=== PATIENT | female | born 1990 | race Caucasian/White ===

== ENCOUNTER 2019-10-30 15:07 | Emergency (ER) | payer SELFPAY ==
[2019-10-30] VITALS (20 sets, daily range): BP systolic 109–132; BP diastolic 55–84; PULSE 47–108; RESP 12–28; TEMP 36.6–37; O2SAT 97–100
[2019-10-30] MEDS: diphenhydrAMINE 50 MG/ML VIAL 25 MG IVP (15:15)
[2019-10-30] MEDS: methylPREDNISolone SUCC 125 MG VIAL (15:16)
[2019-10-30] MEDS: FAMOTIDINE 20 MG/50 ML BAG 200 MG (15:16)
--- NOTE | 2019-10-30 15:19 | ED.GENADUL_ITS ---
Discharge Plan Disposition Patient Disposition: HOME Condition: Good Discharge Details Chief Complaint: Allergic Clinical Impression: Allergic reaction to bee sting Primary Care Provider: Pushpa Mcdaniel ED Provider: Lily Paz Home Meds and New Rx's Prescriptions: New epinephrine [EpiPen] 0.3 mg/0.3 mL auto-injector 0.3 mg IM ONCE PRN (Reason: allergic reaction) Qty: 2 RF: 0 prednisone 20 mg tablet 40 mg PO DAILY Qty: 6 RF: 0 Discharge Instructions Instructions: General Allergic Reaction (ED) Additional Instructions: You may continue to use Benadryl as needed to help with any itching that may recur. However, if you develop difficulty breathing, shortness of breath, swelling in 1 mouth or throat or the new/worsening symptom please seek care urgently once again. Please take the prednisone as prescribed to help prevent recurrence of your reaction, your next dose will be due tomorrow. I have also prescribed you an EpiPen. Please read the directions closely. This is to be used if you have a re-exposure such as being stung again, and develop difficulty breathing, shortness of breath or other new/worsening symptom. If you do need to use the EpiPen, please return immediately to the emergency department. Please contact your primary care provider and schedule follow-up appointment in the next 1 to 2 weeks. Referrals: Pushpa Mcdaniel [Primary Care Provider] - Discharge Data Discharge Date/Time-TO BE ENTERED AT DEPARTURE: 10/30/19 17:22 Medical Decision Making <CARMINE Gutierrez - Last Filed: 10/31/19 16:02> 29-year-old female presents with likely allergic reaction to a bee sting on the right forearm. No stinger present. She did take a single dose of 25 milligrams p.o. Benadryl. Will obtain IV access, give 125 Solu-Medrol, 20 Pepcid, 25 Benadryl, 1 L normal saline and monitor carefully. At this time there is no clear indication for epinephrine. Patient was reevaluated around 45 minutes after her initial presentation. The rash is becoming less impressive, far less erythematous and more patchy in nature. Far less dense on her trunk, face, arms. Patient subjectively reports feeling significant improvement. No longer itchy. Reports that the tightness in her upper lip is resolving. I am able to appreciate a small amount of upper lip swelling however it does appear to be improving. <CARMINE West - Last Filed: 10/30/19 17:17> Care transition myself from Joe Kaufman PA-C, with reevaluation pending. In brief, patient is a pleasant 29-year-old female with no previous known allergies, who presented for allergic reaction after being stung by a bee. Patient was given Benadryl, famotidine and methylprednisolone. When she first arrived, she was noted to have a rash,. S, and swelling to the upper lip. She continues to feel much improved. I have checked on the patient multiple times. Continues to have no respiratory or GI complaints. States that the rash is improved. The swelling to the upper lip continues to go down. Patient was in the department for 2 hours. She continues to be stable without evidence of anaphylaxis, I do feel that she is safe for discharge. However, I do feel that continuing the patient on steroid burst would be appropriate. I will also prescribe an EpiPen in the event that she is stung once again and has worsening reaction. We did discuss usage, I did encourage that she read the instructions closely. She was given strict return precautions. Advise follow-up with her primary care. All the questions and concerns were addressed and she is agreement this plan. HPI <CARMINE Gutierrez - Last Filed: 10/31/19 16:02> General Mode of arrival: ambulatory . Date/Time Provider Initiated Documentation: 10/30/19 15:19 . Limitations to Documentation: no limitations . Information obtained by: patient . HPI Narrative: This is a 29-year-old female who denies any significant past medical history reports that she was stung on the right forearm by what she believes to be a bee. This occurred around 2-215 and she took a single dose of 25 mg Benadryl around 230. She reports a body wide itchy rash she feels as though her upper lip is slightly swollen. She denies difficulty speaking, swallowing, breathing. Denies wheezing. She has never had an allergic reaction like this. She denies headache, chest pain, numbness, tingling, weakness, pain anywhere. Related Data Home Medications Medication Instructions Recorded Confirmed epinephrine [EpiPen] 0.3 mg IM ONCE PRN #2 each 10/30/19 prednisone 40 mg PO DAILY #6 tab 10/30/19 Previous Rx's Medication Instructions Recorded epinephrine [EpiPen] 0.3 mg IM ONCE PRN #2 each 10/30/19 prednisone 40 mg PO DAILY #6 tab 10/30/19 Allergies Allergy/AdvReac Type Severity Reaction Status Date / Time No Known Allergies Allergy Unverified 10/30/19 15:22 General Stated Complaint: Allergic DUY: 2 Review of Systems <CRAMINE Gutierrez - Last Filed: 10/31/19 16:02> Constitutional Constitutional: Denies fever(s) Eyes Eyes: Denies change in vision ENT Ears, Nose, Mouth, and Throat: Denies throat swelling and Denies tongue swelling Cardiovascular Cardiovascular: Denies chest pain and Denies dyspnea Respiratory Respiratory: Denies cough and Denies dyspnea Gastrointestinal Gastrointestinal: Denies abdominal pain, Denies nausea and Denies vomiting Musculoskeletal Musculoskeletal: Denies arthralgias, Denies numbness and Denies tingling Integumentary/Breasts Skin/Breast: Reports rash Neurologic Neurologic: Denies numbness and Denies tingling Allergic/Immunologic Allergic/Immunologic: Denies throat swelling and Denies tongue swelling PFSH <CARMINE Gutierrez - Last Filed: 10/31/19 16:02> Social History Smoking/Tobacco Use Status: Current-Occasional Alcohol Intake: current Alcohol Intake frequency: holidays/special occasions only Substance use type: marijuana Do you feel safe at home: Yes Do you feel safe in your relationship?: Yes Exam <CARMINE Gutierrez - Last Filed: 10/31/19 16:02> Const General: cooperative, healthy appearing, comfortable, no acute distress and anxious Orientation: alert, awake and oriented x3 HENMT Head: normal to inspection, normocephalic and atraumatic Ears: hearing grossly normal bilaterally General nose exam: external nose normal Face and sinus: other (Upper lip with minimal swelling) Mouth: moist mucous membranes Throat: posterior oropharynx normal Eyes Conjunctivae: conjunctivae normal Sclera: sclerae normal Neck Neck: normal visual inspection, full ROM, trachea midline and supple Resp Effort & Inspection: normal respiratory effort and able to speak in complete sentences Auscultation: clear to auscultation bilaterally Cardio Rate: regular rate Rhythm: regular rhythm GI Palpation: soft and nontender Back/Spine/Pelvis Back: No back tenderness Skin General skin exam: no rashes or lesions noted Other: There is a body wide erythematous rash that is blanchable, minimally papular. The highest concentration is that of the trunk, face, upper extremities, less on the lower extremities. Minimal warmth. No discomfort. Neuro General: patient alert, patient awake, patient oriented x3, moves all extremities and no focal motor deficits Cranial Nerves: CN's II-XI intact bilaterally Cognition: normal cognition Speech: speech normal Gait: normal gait Motor: muscle tone normal throughout and strength 5/5 throughout Sensory Exam: no sensory deficits noted Extrem Right upper extremity: full ROM and normal capillary refill Left upper extremity: full ROM and normal capillary refill Right lower extremity: full ROM and normal capillary refill Left lower extremity: full ROM and normal capillary refill Other: Right forearm with what appears to be a small puncture wound. No obvious foreign body. Psych Appearance: grossly normal Mental Status: mental status grossly normal Course <CARMINE Gutierrez - Last Filed: 10/31/19 16:02> Vital Signs Vital signs: Vital Signs Temperature 37 C 10/30/19 15:12 Pulse 90 10/30/19 15:12 Respiratory Rate 28 H 10/30/19 15:12 Blood Pressure 126/77 10/30/19 15:12 Pulse Oximetry 97 10/30/19 15:12 Temperature 37 C 10/30/19 15:12 Temperature Source Skin 10/30/19 15:12 Pulse 90 10/30/19 15:12 Respiratory Rate 28 H 10/30/19 15:12 Blood Pressure 126/77 10/30/19 15:12 Blood Pressure Position Sitting 10/30/19 15:12 Pulse Oximetry 97 10/30/19 15:12 Oxygen Delivery Method Room Air 10/30/19 15:12 Oxygen Flow Rate 0 10/30/19 15:12 Sign Out <CARMINE Gutierrez - Last Filed: 10/31/19 16:02> Sign Out Data: Sign Out Comment: Pending reevaluation. If patient responds well and likely discharge home with burst dose of steroids, [id number] Pepcid and Benadryl . Prescription for EpiPen Last updated by Sawyer Kaufman PA at 10/30/19 15:56
== END 2019-10-30 17:22 | disposition home or self-care (01) ==
PROVIDERS: Emergency Provider Physician Assistant; PCP Nurse Practitioner Family
DX: T63.441A Toxic effect of venom of bees, accidental (unintentional), initial encounter (principal); L53.8 Other specified erythematous conditions; L29.8 Other pruritus
CPT/HCPCS: 96374; 99284; J1200; J2930

== ENCOUNTER 2022-03-26 11:03 | Outpatient (CLI) | payer BC, SELFPAY ==
[2022-03-26 10:49] LABS: HCT 34.9 % (36.0-46.0); HGB 11.6 g/dL (11.2-15.7); MCH 30.4 pg (27.0-33.0); MCHC 33.2 % (32.0-36.0); MCV 92 fL (80-95); MPV 9.9 fL (8.0-11.0); Platelet Count 250 10^3/uL (130-400); RBC 3.81 10^6/uL (3.93-5.22); RDW 12.6 % (11.7-14.6); WBC 8.37 10^3/uL (4.4-10.8)
[2022-03-26 11:03] LABS: Glucose,1 Hr (Glucola) 106 mg/dL (80-140)
[2022-03-29 09:13] LABS: Hepatitis C Ab w Rflx HCV PCR Negative (Negative)
== END 2022-03-26 11:04 | disposition home or self-care (01) ==
LOC: LBO 11:04
PROVIDERS: PCP Nurse Practitioner Family; Visit Provider Advanced Practice Midwife
DX: Z34.91 Encounter for supervision of normal pregnancy, unspecified, first trimester
CPT/HCPCS: 36415; 82950; 85027; 86803; 86850; 86900; 86901

== ENCOUNTER 2022-04-09 10:13 | Outpatient (CLI) | payer BC, SELFPAY ==
[2022-04-09 10:44] VITALS: BP 115/66; PULSE 71; TEMP 37.4
[2022-04-09 11:04] VITALS: BP 115/66; PULSE 71
== END 2022-04-09 11:15 | disposition home or self-care (01) ==
LOC: BCD 10:17 → OBS 10:43
PROVIDERS: PCP Nurse Practitioner Family; Visit Provider Advanced Practice Midwife
DX: Z87.59 Personal history of other complications of pregnancy, childbirth and the puerperium (principal); O99.891 Other specified diseases and conditions complicating pregnancy
CPT/HCPCS: 59025

== ENCOUNTER 2022-04-15 08:21 | Outpatient (CLI) | payer BC, SELFPAY ==
[2022-04-15 09:06] VITALS: BP 111/65; PULSE 68; TEMP 36.8
[2022-04-15 09:07] VITALS: BP 111/65; PULSE 68
--- NOTE | 2022-04-15 09:55 | W.OBNST ---
Date of service: 04/15/22 Time of Service: 09:05 NST Evaluation Reason for NST Reasons for Nonstress Test: OTHER, SEE COMMENT Reason for NST Other: patient request/ history of IUFD Gestational Age Gestational Age in Weeks and Days: 30 Weeks and 5Days Test and Monitor Explained Test/Monitor Explained: Test Explained, Monitor Explained and Patient Verbalized Understanding Vital Signs Blood Pressure: 111/65 Pulse: 68 Temperature: 98.2 F NST Information Date on Monitor: 04/15/22 Time on Monitor: 09:03 Date off Monitor: 04/15/22 Time off Monitor: 09:32 Total Time on Monitor: 29 NST Interventions: PO Hydration Contraction Frequency: 0 NST Evaluation Patient States Movement: Present FHR Baseline: 125 Variability: Moderate 6-25 bpm Accelerations: 15x15 Decelerations: None NST Results: Reactive Note N/A NST Note Note: NST is reactive and reassuring. Patient has no complaints. Has appointment for US for growth in next week and repeat NST weekly as well as office appointment. BRADLEY NST Reviewed and Verified by: Ellie Chan
[2022-04-15 09:57] VITALS: BP 111/65; PULSE 68; TEMP 36.8
== END 2022-04-15 09:40 | disposition home or self-care (01) ==
LOC: BCD 08:26 → OBS 09:05
PROVIDERS: PCP Nurse Practitioner Family; Visit Provider Advanced Practice Midwife
DX: O43.193 Other malformation of placenta, third trimester (principal); Z3A.30 30 weeks gestation of pregnancy
CPT/HCPCS: 59025

== ENCOUNTER 2022-04-22 00:06 | Outpatient (CLI) | payer BC, SELFPAY ==
--- NOTE | 2022-04-22 06:45 | DI.US_ITS ---
Exam(s) US OB GURU WEIGHT EXAM: US OB GURU WEIGHT CLINICAL HISTORY: growth due to marginal cord insertion per uvm,)43.99,z87.59. TECHNIQUE: Transabdominal obstetrical ultrasound was performed. COMPARISON: US US OB DETAILED from 01/22/2022 FINDINGS: There is a single viable intrauterine gestation with cardiac activity identified-148 bpm The fetus is presently in cephalic position . Amniotic fluid: There is a normal amount of amniotic fluid with an GURU of 14.3cm. Placental location: The placenta is posterior grade 1,with no evidence of placenta previa. Dating parameters place this at approximately 32 weeks and 1 day gestational age, implying ALFIE of June 16, 2022. BPD measures 32 weeks and 2 days HC measures 32 weeks and 5 days AC measures 32 weeks and 1 day FL measures 31 weeks and 4 days Estimated weight is 1889 gm-4 pounds 3 ounces Fetus is at the 44th percentile on the Hadlock scale. IMPRESSION:: Viable 3rd trimester gestation, as described above. DATA REPOSITORY:
== END 2022-04-22 00:26 ==
PROVIDERS: PCP Nurse Practitioner Family; Visit Provider Advanced Practice Midwife
DX: O43.193 Other malformation of placenta, third trimester (principal); Z87.59 Personal history of other complications of pregnancy, childbirth and the puerperium
CPT/HCPCS: 76816

== ENCOUNTER 2022-04-22 07:42 | Outpatient (CLI) | payer BC, SELFPAY ==
[2022-04-22 09:32] VITALS: BP 119/74; PULSE 65; TEMP 37.1
[2022-04-22 09:38] VITALS: BP 119/74; PULSE 65
[2022-04-22 10:08] VITALS: BP 119/74; PULSE 65; TEMP 37.1
--- NOTE | 2022-04-22 10:08 | W.OBNST ---
Date of service: 04/22/22 Time of Service: 10:08 NST Evaluation Reason for NST Reasons for Nonstress Test: OTHER, SEE COMMENT Gestational Age Gestational Age in Weeks and Days: 31 Weeks and 6Days Test and Monitor Explained Test/Monitor Explained: Test Explained, Monitor Explained and Patient Verbalized Understanding Vital Signs Blood Pressure: 119/74 Pulse: 65 Temperature: 98.8 F NST Information Date on Monitor: 04/22/22 Time on Monitor: 09:32 Date off Monitor: 04/22/22 Time off Monitor: 09:53 Total Time on Monitor: 21 NST Interventions: PO Hydration Contraction Frequency: 0 NST Evaluation Patient States Movement: Present FHR Baseline: 125 Variability: Moderate 6-25 bpm Accelerations: 15x15 Decelerations: None NST Results: Reactive Note N/A NST Note Note: reactive NST, return weekly NST Reviewed and Verified by: Ellie Bravo
== END 2022-04-22 09:58 | disposition home or self-care (01) ==
LOC: BCD 07:48 → OBS 08:47
PROVIDERS: PCP Nurse Practitioner Family; Visit Provider Advanced Practice Midwife
DX: Z34.93 Encounter for supervision of normal pregnancy, unspecified, third trimester (principal); Z3A.31 31 weeks gestation of pregnancy
CPT/HCPCS: 59025

== ENCOUNTER 2022-04-29 06:52 | Outpatient (CLI) | payer BC, SELFPAY ==
[2022-04-29 08:57] VITALS: BP 104/61; PULSE 67; TEMP 37.2
[2022-04-29 09:30] VITALS: BP 104/61; PULSE 67
--- NOTE | 2022-04-29 09:59 | W.OBNST ---
Date of service: 04/29/22 Time of Service: 09:59 NST Evaluation Reason for NST Reasons for Nonstress Test: OTHER, SEE COMMENT Reason for NST Other: previous demise Gestational Age Gestational Age in Weeks and Days: 33 Weeks and 1Days Test and Monitor Explained Test/Monitor Explained: Test Explained, Monitor Explained and Patient Verbalized Understanding Vital Signs Blood Pressure: 104/61 Pulse: 67 Temperature: 99.0 F NST Information Date on Monitor: 04/29/22 Time on Monitor: 08:58 Date off Monitor: 04/29/22 Time off Monitor: 09:39 Total Time on Monitor: 41 NST Interventions: None NST Evaluation Patient States Movement: Present FHR Baseline: 125 Variability: Moderate 6-25 bpm Accelerations: 15x15 Decelerations: None NST Results: Reactive Note N/A NST Note Note: reactive NST, will return weekly for NST NST Reviewed and Verified by: Ellie Bravo
[2022-04-29 10:00] VITALS: BP 104/61; PULSE 67; TEMP 37.2
== END 2022-04-29 09:45 | disposition home or self-care (01) ==
LOC: BCD 07:17 → OBS 08:56
PROVIDERS: PCP Nurse Practitioner Family; Visit Provider Advanced Practice Midwife
DX: Z87.59 Personal history of other complications of pregnancy, childbirth and the puerperium (principal); O26.893 Other specified pregnancy related conditions, third trimester; Z3A.33 33 weeks gestation of pregnancy
CPT/HCPCS: 59025

== ENCOUNTER 2022-05-06 07:55 | Outpatient (CLI) | payer BC, SELFPAY ==
[2022-05-06 09:08] VITALS: BP 112/66; PULSE 72
[2022-05-06 09:10] VITALS: BP 112/66; PULSE 72
--- NOTE | 2022-05-06 10:15 | W.OBNST ---
Date of service: 05/06/22 Time of Service: 09:35 NST Evaluation Reason for NST Reasons for Nonstress Test: OTHER, SEE COMMENT Reason for NST Other: wellbeing Gestational Age Gestational Age in Weeks and Days: 33 Weeks and 4Days Test and Monitor Explained Test/Monitor Explained: Test Explained, Monitor Explained and Patient Verbalized Understanding Vital Signs Blood Pressure: 112/66 Pulse: 72 NST Information Date on Monitor: 05/06/22 Time on Monitor: 09:07 Date off Monitor: 05/06/22 Time off Monitor: 09:37 Total Time on Monitor: 30 NST Interventions: None NST Evaluation Patient States Movement: Present FHR Baseline: 135 Variability: Moderate 6-25 bpm Accelerations: 15x15 Decelerations: None NST Results: Reactive Note N/A NST Note Note: NST is reactive and reassuring. Angelica wanted to schedule her IOL for the 39th week today so she can relay to family who are traveling to help her out at home. Scheduled for 06/14/22 8 am. Will return for NST in 1 week as scheduled. BRADLEY NST Reviewed and Verified by: Ellie Chan
[2022-05-06 10:17] VITALS: BP 112/66; PULSE 72
== END 2022-05-06 09:37 | disposition home or self-care (01) ==
LOC: BCD 08:05 → OBS 09:04
PROVIDERS: PCP Nurse Practitioner Family; Visit Provider Advanced Practice Midwife
DX: O43.193 Other malformation of placenta, third trimester (principal); Z3A.33 33 weeks gestation of pregnancy
CPT/HCPCS: 59025

== ENCOUNTER 2022-05-13 08:29 | Outpatient (CLI) | payer BC, SELFPAY ==
[2022-05-13 09:05] VITALS: BP 113/62; PULSE 67
[2022-05-13 09:10] VITALS: BP 113/62; PULSE 67
[2022-05-13 09:42] VITALS: BP 113/62; PULSE 67
--- NOTE | 2022-05-13 09:42 | W.OBNST ---
Date of service: 05/13/22 Time of Service: 09:42 NST Evaluation Reason for NST Reasons for Nonstress Test: OTHER, SEE COMMENT Reason for NST Other: wellbeing Gestational Age Gestational Age in Weeks and Days: 34 Weeks and 4Days Test and Monitor Explained Test/Monitor Explained: Test Explained, Monitor Explained and Patient Verbalized Understanding Vital Signs Blood Pressure: 113/62 Pulse: 67 NST Information Date on Monitor: 05/13/22 Time on Monitor: 09:08 Date off Monitor: 05/13/22 Time off Monitor: 09:31 Total Time on Monitor: 23 NST Interventions: None Contraction Frequency: 11 NST Evaluation Patient States Movement: Present FHR Baseline: 125 Variability: Moderate 6-25 bpm Accelerations: 15x15 Decelerations: None NST Results: Reactive Note N/A NST Note Note: reactive NST. Willl continue twice weekly testing. NST Reviewed and Verified by: Ellie Bravo
== END 2022-05-13 09:39 | disposition home or self-care (01) ==
LOC: BCD 08:31 → OBS 08:41
PROVIDERS: PCP Nurse Practitioner Family; Visit Provider Advanced Practice Midwife
DX: O26.893 Other specified pregnancy related conditions, third trimester (principal); Z3A.34 34 weeks gestation of pregnancy
CPT/HCPCS: 59025

== ENCOUNTER 2022-05-20 01:27 | Outpatient (CLI) | payer BC, SELFPAY ==
--- NOTE | 2022-05-20 06:30 | DI.US_ITS ---
Exam(s) US OB GURU WEIGHT EXAM: US OB GURU WEIGHT CLINICAL HISTORY: GURU and weight due to marginal cord insertion,O43.199,Z87.59. TECHNIQUE: Transabdominal obstetrical ultrasound performed. COMPARISON: US US OB GURU WEIGHT from 04/22/2022 FINDINGS:: Number of fetuses: One. position: Vertex. Placental location: Fundal. Marginal cord insertion 1.3 cm from edge of placenta BIOMETRIC DATA: BPD: 89mm = 36+ 0 weeks HC: 321mm = 36+ 2 weeks AC: 318mm = 35+5 weeks FL: 66 mm = 33+ 6 weeks EFW: 2646 Gms = 38% Composite Age: 35+3 weeks EDC: 21 June 2022 Heart Rate: 136BPM Amniotic fluid index: 13.2 cm. Amount of fluid is visually within normal limits. IMPRESSION: size and weight are within the expected range. DATA REPOSITORY:
== END 2022-05-20 01:47 ==
PROVIDERS: PCP Nurse Practitioner Family; Visit Provider Advanced Practice Midwife
DX: O43.193 Other malformation of placenta, third trimester (principal); Z87.59 Personal history of other complications of pregnancy, childbirth and the puerperium; Z3A.35 35 weeks gestation of pregnancy
CPT/HCPCS: 76816

== ENCOUNTER 2022-05-20 08:39 | Outpatient (CLI) | payer BC, SELFPAY ==
[2022-05-20 09:34] VITALS: BP 120/70; PULSE 64; TEMP 36.8
[2022-05-20 10:50] VITALS: BP 120/70; PULSE 64; TEMP 36.8
--- NOTE | 2022-05-20 10:50 | W.OBNST ---
Date of service: 05/20/22 Time of Service: 10:50 NST Evaluation Reason for NST Reasons for Nonstress Test: PREVIOUS DEMISE Gestational Age Gestational Age in Weeks and Days: 35 Weeks and 4Days Test and Monitor Explained Test/Monitor Explained: Test Explained, Monitor Explained and Patient Verbalized Understanding Vital Signs Blood Pressure: 120/70 Pulse: 64 Temperature: 98.2 F NST Information Date on Monitor: 05/20/22 Time on Monitor: 09:25 Date off Monitor: 05/20/22 Time off Monitor: 09:46 Total Time on Monitor: 21 NST Interventions: PO Hydration Contraction Frequency: 3-5 NST Evaluation Patient States Movement: Present FHR Baseline: 135 Variability: Moderate 6-25 bpm Accelerations: 15x15 Decelerations: None NST Results: Reactive Note N/A NST Note NST Reviewed and Verified by: Monica Golden
== END 2022-05-20 09:50 | disposition home or self-care (01) ==
LOC: BCD 08:43 → OBS 09:31
PROVIDERS: PCP Nurse Practitioner Family; Visit Provider Advanced Practice Midwife
DX: O09.293 Supervision of pregnancy with other poor reproductive or obstetric history, third trimester (principal); Z3A.35 35 weeks gestation of pregnancy
CPT/HCPCS: 59025

== ENCOUNTER 2022-05-20 10:29 | Outpatient (REF) | payer BC, SELFPAY | END 2022-05-20 10:30 | disposition home or self-care (01) | LOC: LBN 10:29 | PROVIDERS: PCP Nurse Practitioner Family; Visit Provider Advanced Practice Midwife | DX: Z34.93 Encounter for supervision of normal pregnancy, unspecified, third trimester (principal); Z3A.35 35 weeks gestation of pregnancy; Z36.85 Encounter for antenatal screening for Streptococcus B | CPT/HCPCS: 87081 ==

== ENCOUNTER 2022-05-27 07:43 | Outpatient (CLI) | payer BC, SELFPAY ==
[2022-05-27] VITALS (7 sets, daily range): BP systolic 101–126; BP diastolic 51–86; PULSE 68–100; TEMP 36.9
--- NOTE | 2022-05-27 09:54 | W.OBNST ---
Date of service: 05/27/22 Time of Service: 09:54 NST Evaluation Reason for NST Reasons for Nonstress Test: OTHER, SEE COMMENT Reason for NST Other: wellbeing Gestational Age Gestational Age in Weeks and Days: 36 Weeks and 4Days Test and Monitor Explained Test/Monitor Explained: Test Explained, Monitor Explained and Patient Verbalized Understanding Vital Signs Blood Pressure: 126/85 Pulse: 78 Temperature: 98.4 F NST Information Date on Monitor: 05/27/22 Time on Monitor: 09:08 Date off Monitor: 05/27/22 Time off Monitor: 09:28 Total Time on Monitor: 20 NST Interventions: None Contraction Frequency: 0 NST Evaluation Patient States Movement: Present FHR Baseline: 125 Variability: Moderate 6-25 bpm Accelerations: 15x15 Decelerations: None NST Results: Reactive Note N/A NST Note Note: NST is reactive and reassuring. Will return weekly until induction on 06/14/22. NST Reviewed and Verified by: Ellie Chan
== END 2022-05-27 09:30 | disposition home or self-care (01) ==
LOC: BCD 07:52 → OBS 09:04
PROVIDERS: PCP Nurse Practitioner Family; Visit Provider Advanced Practice Midwife
DX: O09.293 Supervision of pregnancy with other poor reproductive or obstetric history, third trimester (principal); Z3A.36 36 weeks gestation of pregnancy
CPT/HCPCS: 59025; 87081

== ENCOUNTER 2022-06-03 07:11 | Outpatient (CLI) | payer BC, SELFPAY ==
[2022-06-03 09:05] VITALS: BP 134/76; PULSE 72; TEMP 36.9
--- NOTE | 2022-06-03 10:23 | W.OBNST ---
Date of service: 06/03/22 Time of Service: 09:15 NST Evaluation Reason for NST Reasons for Nonstress Test: OTHER, SEE COMMENT Reason for NST Other: well being Gestational Age Gestational Age in Weeks and Days: 37 Weeks and 5Days Test and Monitor Explained Test/Monitor Explained: Test Explained, Monitor Explained and Patient Verbalized Understanding Vital Signs Blood Pressure: 134/76 Pulse: 72 Temperature: 98.4 F NST Information Date on Monitor: 06/03/22 Time on Monitor: 09:07 Date off Monitor: 06/03/22 Time off Monitor: 09:30 Total Time on Monitor: 23 NST Interventions: PO Hydration Contraction Frequency: 2-4 NST Evaluation Patient States Movement: Present FHR Baseline: 135 Variability: Moderate 6-25 bpm Accelerations: 15x15 Decelerations: None NST Results: Reactive Note N/A NST Note Note: NST is reactive and reassuring. Return in 1 week. BRADLEY NST Reviewed and Verified by: Ellie Chan
[2022-06-03 10:24] VITALS: BP 134/76; PULSE 72; TEMP 36.9
== END 2022-06-03 09:39 | disposition home or self-care (01) ==
LOC: BCD 07:13 → OBS 09:04
PROVIDERS: PCP Nurse Practitioner Family; Visit Provider Advanced Practice Midwife
DX: O26.893 Other specified pregnancy related conditions, third trimester (principal); Z3A.37 37 weeks gestation of pregnancy
CPT/HCPCS: 59025

== ENCOUNTER 2022-06-07 16:37 | Outpatient (CLI) | payer BC, SELFPAY ==
[2022-06-07 17:58] VITALS: BP 126/78; PULSE 63
[2022-06-07 18:02] VITALS: BP 126/78; PULSE 63; TEMP 36.8
[2022-06-07 18:43] VITALS: BP 137/81; PULSE 60
[2022-06-07 18:46] LABS: Bilirubin Negative (Negative); Blood Negative (Negative); Clarity Clear (Clear); Glucose Negative (Negative); Ketones Negative (Negative); Leukocyte Esterase Trace (Negative); Nitrite Negative (Negative); Urobilinogen 0.2 mg/dL (Up to 0.2)
[2022-06-07 18:48] LABS: Bacteria Negative HPF (Negative); C & S Indicated? No; Casts Negative LPF (Negative); Crystals Negative HPF (Negative); Epithelial Cells Few HPF (Negative); Mucus Negative (Negative); RBC 0-2 HPF (0-2)
[2022-06-07 19:10] LABS: HCT 34.3 % (36.0-46.0); HGB 11.5 g/dL (11.2-15.7); MCH 29.9 pg (27.0-33.0); MCHC 33.5 % (32.0-36.0); MCV 89 fL (80-95); MPV 10.5 fL (8.0-11.0); Platelet Count 206 10^3/uL (130-400); RBC 3.85 10^6/uL (3.93-5.22); RDW 12.8 % (11.7-14.6); RDW-SD 41.9 fL; WBC 10.48 10^3/uL (4.4-10.8)
[2022-06-07 19:25] LABS: ALT 14 U/L (14-59); AST 9 U/L (15-37); Albumin 2.7 g/dL (3.4-5.0); Alkaline Phosphatase 139 U/L (46-116); Anion Gap 8.5 mmol/L (3-11); BUN 9 mg/dL (7-18); Bilirubin, Total 0.2 mg/dL (0.2-1.0); CO2 23.5 mmol/L (21.0-32.0); CREATININE 0.5 mg/dL (0.55-1.02); Calcium 8.9 mg/dL (8.5-10.1); Chloride 104 mmol/L (98-107); Estimated GFR 126.93 (mL/min/1.73m2); Glucose 100 mg/dL (74-106); Potassium 3.6 mmol/L (3.5-5.1); Sodium 136 mmol/L (136-145); Total Protein 6.4 g/dL (6.4-8.2); Uric Acid 4.5 mg/dL (2.6-6.0)
[2022-06-07 19:44] LABS: COMMENT (LAB VIEW ONLY) 10.32 mg/dL; PROTEIN < 6.0 mg/dL
[2022-06-07 20:05] VITALS: BP 126/77; PULSE 60
[2022-06-07 20:06] VITALS: BP 126/77; PULSE 63
--- NOTE | 2022-06-08 10:56 | PDOC.NST_ITS ---
Date of service: 06/07/22 Time of Service: 21:00 NST Evaluation Reason for NST Reasons for Nonstress Test: OTHER, SEE COMMENT Reason for NST Other: well being/ right upper quad pain Gestational Age Gestational Age in Weeks and Days: 38 Weeks and 1Days Test and Monitor Explained Test/Monitor Explained: Test Explained, Monitor Explained and Patient Verbalized Understanding Vital Signs Blood Pressure: 126/78 Pulse: 63 Temperature: 98.2 F Urine Results Urine Protein: Negative Urine Ketones: Negative Urine Glucose: Negative Urine Blood: Negative NST Information Date on Monitor: 06/07/22 Time on Monitor: 17:55 NST Interventions: PO Hydration Contraction Frequency: irritability NST Evaluation Patient States Movement: Present FHR Baseline: 135 Variability: Moderate 6-25 bpm Accelerations: 15x15 Decelerations: None NST Results: Reactive Note N/A NST Note Note: Radha called and complained of right upper quadrant pain. Serial BPs are 137 81, 126/78 and preeclampsia labs are WNL. Instructed to rest and call with worsening symptoms. Reactive NST. RTO in 2 days for NST. NST Reviewed and Verified by: Ellie Bravo
[2022-06-08 10:58] VITALS: BP 126/78; PULSE 63; TEMP 36.8
== END 2022-06-07 20:30 | disposition home or self-care (01) ==
LOC: BCD 16:38 → OBS 17:05
PROVIDERS: PCP Nurse Practitioner Family; Visit Provider Advanced Practice Midwife
DX: O26.893 Other specified pregnancy related conditions, third trimester (principal); R10.9 Unspecified abdominal pain; Z3A.38 38 weeks gestation of pregnancy
CPT/HCPCS: 80053; 85027; 99211; 59025; 81003; 81015; 82565; 84156; 84550; 87086; G0378

== ENCOUNTER 2022-06-10 08:17 | Outpatient (CLI) | payer BC, SELFPAY ==
[2022-06-10 09:21] VITALS: BP 121/75; PULSE 80; TEMP 36.7
[2022-06-10 09:35] VITALS: BP 121/75; PULSE 80
--- NOTE | 2022-06-10 10:00 | W.OBNST ---
Date of service: 06/10/22 Time of Service: 09:50 NST Evaluation Reason for NST Reasons for Nonstress Test: PREVIOUS DEMISE Gestational Age Gestational Age in Weeks and Days: 38 Weeks and 4Days Test and Monitor Explained Test/Monitor Explained: Test Explained, Monitor Explained and Patient Verbalized Understanding Vital Signs Blood Pressure: 121/75 Pulse: 80 Temperature: 98.1 F NST Information Time on Monitor: 09:10 Date off Monitor: 06/10/22 Time off Monitor: 09:35 NST Interventions: None Contraction Frequency: None NST Evaluation Patient States Movement: Present FHR Baseline: 135 Variability: Moderate 6-25 bpm Accelerations: 15x15 Decelerations: None NST Results: Reactive Note N/A NST Note Note: NST is reactive and reassuring NST Reviewed and Verified by: Ellie Chan
[2022-06-10 10:02] VITALS: BP 121/75; PULSE 80; TEMP 36.7
== END 2022-06-10 09:35 | disposition home or self-care (01) ==
LOC: BCD 08:22 → OBS 09:17
PROVIDERS: PCP Nurse Practitioner Family; Visit Provider Advanced Practice Midwife
DX: O26.893 Other specified pregnancy related conditions, third trimester (principal); Z3A.38 38 weeks gestation of pregnancy; Z87.59 Personal history of other complications of pregnancy, childbirth and the puerperium
CPT/HCPCS: 59025

== ENCOUNTER 2022-06-13 10:26 | Inpatient (IN) | payer BC, SELFPAY ==
[2022-06-13] VITALS (203 sets, daily range): BP systolic 112–132; BP diastolic 66–86; PULSE 56–124; RESP 16; TEMP 36.7–37
--- NOTE | 2022-06-13 10:29 | W.PM.OBHPL1 ---
Date of service: 06/13/22 Time of Service: 10:29 Assessment and Plan Assessment and plan (1) History of loss: Status: Acute Assessment and plan: 1. Planned induction at 39 weeks due to history of full term loss, plan of care has been reviewed with Physicians who agree. 2. Meng exam is 7 and we will plan misoprostol PO 3. Risks, benefits and alternatives including expectant management have been reviewed and they prefer to do induction of labor. 4. Will begin is misoprostol 50 mcg PO and reassess in 4 hours or prn 5. Admit with labs CBC, type and screen and COVID screen 6. Will defer IV access at this time but patient agrees to IV access as needed 7. Patient and prefer continuous monitoring and we will use Monical Novii to allow for movement. KH OB-HPI Labor/Delivery History of Present Illness Reason for Visit: PIERRE Chief Complaint: Scheduled Induction of Labor Indication for Induction: Other (history of full term loss). ALFIE Calculator Estimated Delivery Date Method Current WG Current Estimate 06/20/22 LMP (Certain) 39w 0d Other Estimates 06/18/22 Ultrasound #1 39w 2d Comments: Radha and Jaswinder present for induction of labor at 39 weeks gestation due to full term loss of first child. They are feeling well. Radha denies signs of labor or ROM. Baby has been active. She agrees to misoprostol for cervical ripening and change to pitocin if needed later in process. She does not believe she will use epidural for labor pain management but will likely use nitrous. I have reviewed cervical ripening methods and risks and benefits of each, they agree to plan and deny questions. BRADLEY History of Present Expected Delivery Route/Plan - CNM Angelica FOB/ - Herbert Coreas (2nd child together) BG Russell Had epidural with first, considering nitrous first this time IOL at 39 wks, will book for June 11, continuous EFM for reassurance GBS negative Specific Issues/Plan 1. transfer from [facility], see records 2. Due to history of IUFD plan IOL at 39 weeks, patient prefers this 2a. EFW @ 31 wks in 44th%, GURU 14, ecentric cord insertion 1.6 cm from margin. 2b. Repeat growth scan at 36 wks- EFW 44th percentile, GURU - 14.3 2c. Weekly NST's starting at 30-32 weeks 3. Taking low dose ASA due to COVID during preg. Stopped @ 30 wks d/t increased bleeding from papercut 4. Covid infection 12/2021, Flu infection 01/2022- received tamiflu Assessment: History Reviewed & Current Informed Consent Informed Consent: Induction of Labor and Risk,Benefits,Alternatives Discussed Review of Systems All systems reviewed & are unremarkable except as noted in HPI and below PFSH All Active Problems (Updated 03/11/22 @ 11:55 by Ellie Chan CNM) Marginal insertion of umbilical cord affecting management of mother (Acute) growth at 28 and 32-34 recommended Lactose intolerance (Acute) Tobacco smoker, less than 10 cigarettes per day (Acute) History of anemia (Acute) History of loss (Acute) IUFD at 40+wks in 2020, true knot in cord & marginal cord insertion (Acute) Medical History (Updated 03/11/22 @ 11:55 by Ellie Chan CNM) Family history of BRCA2 gene positive Herbert () and his family Family history of hypertension in father FOB Herbert's family Family history of hypertension in grandmother Grief reaction History of abnormal cervical Pap smear 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 Date GA/Weeks # Preg Succ Route Wgt Sex Labor Lgth Anesthesia Location Prov Complic 12/26/19 40 No No vaginal 6 lb 8 oz Female 47 [facility] other Delivery Date: 12/26/19 Last Updated by: Ellie Chan CNM IUFD due to true knot, meconium Gogo Meds Allergies and Home Medications Allergies Allergy/AdvReac Type Severity Reaction Status Date / Time bee venom protein (honey bee) Allergy Anaphylaxis Unverified 06/10/22 09:34 Home Medications Medication Instructions Recorded Confirmed Type epinephrine 0.3 mg/0.3 mL 0.3 mg (0.3 mL) IM ONCE PRN 10/30/19 06/13/22 Rx injection, auto-injector (EpiPen) allergic reaction #2 ea aspirin 81 mg tablet,delayed 81 mg PO DAILY 03/11/22 06/13/22 History release prenat.vits,hanny,[id number]-ipxi-[id number] 1 tab PO DAILY 03/11/22 06/13/22 History Exam Physical Exam Vital signs: 120/74 P 71 R18 Vital Signs Reviewed: Yes Constitutional Constitutional: no acute distress and average body habitus Detailed Labor and Delivery Exam Dilation: 1 Effacement (%): 50 station: -1 Position: ALYSSA Cervix position: mid Consistency: soft Meng Score: Cervical Points Exam 0 1 2 3 Dilation Closed 1-2cm 3-4 cm 5-6cm Effacement 0-30% 40-50% 60-70% 80% Consistency Firm Medium Soft Station -3 -2 -1,0 +1,+2 Position Posterior Mid Anterior MENG Score(Cervical Ripeness Score): 7 Amniotic Membrane Status: Intact Monitor Mode: External Contraction Frequency(min): irregular Contraction Duration(sec): 20-30 Contraction Intensity: Mild (patient is unaware of contractions) Fetus A Heart Rate Baseline: 120 Monitor Accelerations: 15 X 15 Monitor Decelerations: None Variability: Moderate (6-25 BPM) Categories: Category I Est. Weight: 7 lb 6 oz HEENT Exam HEENT Exam: Normal Neck Exam Neck Exam: Normal (visual inspection) Chest/Brest/Axilla Exam Chest Exam: Normal Breast Exam Breast Exam: Not Done Respiratory Exam Respiratory Exam: Normal Cardiovascular Exam Cardiovascular Exam: Normal Abdominal Exam Abdominal Exam: Normal (gravid, size equals dates, ALYSSA by june) Rectal Exam Rectal Exam: Not Done Exam Exam: Normal Extremities Exam Extremities Exam: Normal Back/Spine/Pelvis Exam Back Exam: Not Done Pelvis Adequate: Yes Skin Exam Skin Exam: Normal Neurological Exam Neurological Exam: Normal Psychiatric Exam Psychiatric Exam: Normal Results Results Group Beta Strep: Negative Blood Type: O+ Rubella Status: Immune Varicella Immunity: Immune Lab Results: HIV, Hep B&C and Syphillis are negative. GC CT negative. Declined cfDNA and or AFP testing. Risk Assessment Risk for Shoulder Dystocia Historical/Initial OB: NEGATIVE FOR: Pelvic Abnormality, Pre- BMI>30, Previous Shoulder Dystocia or Previous Macrosomia 40 Weeks: NEGATIVE FOR: EFW> 4500 gms, Maternal Weight Gain >40lb or Post Dates Date/Initial: 03/11/22 Delivery Plan @ 36wks: NVD planned. Delivery Plan @ 40 wks: Induction can increase risk for shoulder dystocia, position and size are favorable for NVD Risk for Pre-Eclampsia Yes, if one or more: NEGATIVE FOR: Hx Pre-E/Gest HTN, Chronic HTN, Multiple Gestation, Pre-gestational DM, Renal Disease, Systemic Lupus or APA Syndrome Yes, if 2 or more: NEGATIVE FOR: Nulliparity, Age>= 35 yrs, >10yr btwn pregnancies, BMI>30, ethinicty, Mother/Sister w/ Pre-E or Previous IUGR Risk for Post- Hemorrhage Initial: NEGATIVE FOR: Multiple Gestation, Previous PPH, Known Clotting Deficiency, Grand Multiparity or Anticoagulation At Risk?: Yes (induction of labor) Counseled re: Active Management: Yes Date/Initials: 03/11/22 Risks Reviewed Risks Reviewed Upon Admission: Yes
--- NOTE | 2022-06-13 10:53 | W.PM.OBHPL1 ---
Date of service: 06/13/22 Time of Service: 10:53 OB-HPI Labor/Delivery History of Present Illness Reason for Visit: PIERRE Chief Complaint: Scheduled Induction of Labor Indication for Induction: Other. ALFIE Calculator Estimated Delivery Date Method Current WG Current Estimate 06/20/22 LMP (Certain) 39w 0d Other Estimates 06/18/22 Ultrasound #1 39w 2d Comments: This is an addendum to initial H&P only History of Present Expected Delivery Route/Plan - CNM Angelica FOB/ - Herbert Coreas (2nd child together) BG Russell Had epidural with first, considering nitrous first this time IOL at 39 wks, will book for June 11, continuous EFM for reassurance GBS negative Specific Issues/Plan 1. transfer from [facility], see records 2. Due to history of IUFD plan IOL at 39 weeks, patient prefers this 2a. EFW @ 31 wks in 44th%, GURU 14, ecentric cord insertion 1.6 cm from margin. 2b. Repeat growth scan at 36 wks- EFW 44th percentile, GURU - 14.3 2c. Weekly NST's starting at 30-32 weeks 3. Taking low dose ASA due to COVID during preg. Stopped @ 30 wks d/t increased bleeding from papercut 4. Covid infection 12/2021, Flu infection 01/2022- received tamiflu PFSH All Active Problems (Updated 03/11/22 @ 11:55 by Ellie Chan CNM) Marginal insertion of umbilical cord affecting management of mother (Acute) growth at 28 and 32-34 recommended Lactose intolerance (Acute) Tobacco smoker, less than 10 cigarettes per day (Acute) History of anemia (Acute) History of loss (Acute) IUFD at 40+wks in 2020, true knot in cord & marginal cord insertion (Acute) Medical History (Updated 03/11/22 @ 11:55 by Ellie Chan CNM) Family history of BRCA2 gene positive Herbert () and his family Family history of hypertension in father FOB Herbert's family Family history of hypertension in grandmother Grief reaction History of abnormal cervical Pap smear 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 Date GA/Weeks # Preg Succ Route Wgt Sex Labor Lgth Anesthesia Location Prov Complic 12/26/19 40 No No vaginal 6 lb 8 oz Female 47 [facility] other Delivery Date: 12/26/19 Last Updated by: Ellie Chan CNM IUFD due to true knot, meconium Gogo Meds Allergies and Home Medications Allergies Allergy/AdvReac Type Severity Reaction Status Date / Time bee venom protein (honey bee) Allergy Anaphylaxis Unverified 06/10/22 09:34 Home Medications Medication Instructions Recorded Confirmed Type epinephrine 0.3 mg/0.3 mL 0.3 mg (0.3 mL) IM ONCE PRN 10/30/19 06/13/22 Rx injection, auto-injector (EpiPen) allergic reaction #2 ea aspirin 81 mg tablet,delayed 81 mg PO DAILY 03/11/22 06/13/22 History release prenat.vits,hanny,znr-[id number]-axctg 1 tab PO DAILY 03/11/22 06/13/22 History Exam Physical Exam Vital signs: Temp Pulse Resp BP 98.2 F 71 16 120/74 06/13/22 10:30 06/13/22 10:30 06/13/22 10:30 06/13/22 10:30 Detailed Labor and Delivery Exam Velazquez Score: Cervical Points Exam 0 1 2 3 Dilation Closed 1-2cm 3-4 cm 5-6cm Effacement 0-30% 40-50% 60-70% 80% Consistency Firm Medium Soft Station -3 -2 -1,0 +1,+2 Position Posterior Mid Anterior Results Results Group Beta Strep: Negative Blood Type: A+ Rubella Status: Immune Varicella Immunity: Immune Lab Results: Previously recorded as not having done cfDNA but she did have that test done at [facility] where she initiated her care. LR female. BRADLEY Risk Assessment Risk for Shoulder Dystocia Historical/Initial OB: NEGATIVE FOR: Pelvic Abnormality, Pre- BMI>30, Previous Shoulder Dystocia or Previous Macrosomia 40 Weeks: NEGATIVE FOR: EFW> 4500 gms, Maternal Weight Gain >40lb or Post Dates Date/Initial: 03/11/22 Delivery Plan @ 36wks: NVD planned. Delivery Plan @ 40 wks: Induction can increase risk for shoulder dystocia, position and size are favorable for NVD Risk for Pre-Eclampsia Yes, if one or more: NEGATIVE FOR: Hx Pre-E/Gest HTN, Chronic HTN, Multiple Gestation, Pre-gestational DM, Renal Disease, Systemic Lupus or APA Syndrome Yes, if 2 or more: NEGATIVE FOR: Nulliparity, Age>= 35 yrs, >10yr btwn pregnancies, BMI>30, ethinicty, Mother/Sister w/ Pre-E or Previous IUGR Risk for Post- Hemorrhage Initial: NEGATIVE FOR: Multiple Gestation, Previous PPH, Known Clotting Deficiency, Grand Multiparity or Anticoagulation At Risk?: Yes (induction of labor) Counseled re: Active Management: Yes Date/Initials: 03/11/22 BRADLEY Risks Reviewed Risks Reviewed Upon Admission: Yes
[2022-06-13 10:54] LABS: Source Nasal/Nares
[2022-06-13 10:57] LABS: HCT 36.3 % (36.0-46.0); MCH 29.8 pg (27.0-33.0); MCHC 33.1 % (32.0-36.0); MCV 90 fL (80-95); MPV 10.8 fL (8.0-11.0); Platelet Count 190 10^3/uL (130-400); RBC 4.03 10^6/uL (3.93-5.22); RDW 12.8 % (11.7-14.6); RDW-SD 42.5 fL; WBC 10.33 10^3/uL (4.4-10.8)
[2022-06-13 11:40] LABS: COVID-19 PCR Negative (Negative)
[2022-06-13] MEDS: miSOPROStol 50 MCG TAB PO (11:48)
--- NOTE | 2022-06-13 15:42 | W.PM.OBNL1 ---
Date of service: 06/13/22 Time of Service: 15:42 Informed Consent Informed Consent: Induction of Labor and Risk,Benefits,Alternatives Discussed Pelvic Exam Dilation: 1 Effacement (%): 50 station: -1 Cervix Position: mid Consistency: soft Contractions Monitor Mode: External Contraction Frequency(min): 2-3 Contraction Duration(sec): 60 Intensity: Mild Fetus A Monitor: Novii Heart Rate Baseline: 120 Variability: Moderate (6-25 BPM) Categories: Category I Accelerations: 15 X 15 Decelerations: None Assessment and Plan Assessment and plan (1) History of loss: Status: Acute Assessment and plan: 1. Reviewed options of increasing strength of contractions with pitocin, use of cook catheter and or schulte and or expectant management as contractions are currently regular although mild 2. Patient considering options and will currently continue with expectant management as contractions are too frequent to do another dose of misoprostol at this time. KH Objective Temp Pulse Resp BP 98.1 F 67 16 127/86 06/13/22 14:23 06/13/22 15:38 06/13/22 14:23 06/13/22 14:23 Laboratory Results WBC 10.33 10^3/uL (4.4-10.8) 06/13/22 10:45 RBC 4.03 10^6/uL (3.93-5.22) 06/13/22 10:45 Hgb 12.0 g/dL (11.2-15.7) 06/13/22 10:45 Hct 36.3 % (36.0-46.0) 06/13/22 10:45 MCV 90 fL (80-95) 06/13/22 10:45 MCH 29.8 pg (27.0-33.0) 06/13/22 10:45 MCHC 33.1 % (32.0-36.0) 06/13/22 10:45 RDW 12.8 % (11.7-14.6) 06/13/22 10:45 Plt Count 190 10^3/uL (130-400) 06/13/22 10:45 MPV 10.8 fL (8.0-11.0) 06/13/22 10:45 COVID-19 Source Nasal/Nares 06/13/22 10:30 SARS-CoV-2 (PCR) Negative (Negative) 06/13/22 10:30 Patient ABO/Rh A Positive 06/13/22 10:45 Antibody Screen NEGATIVE 06/13/22 10:45 Subjective Interval history since last seen: Radha is feeling minimal effects from misoprostol. She understands that induction can take time and that currently she is having frequent enough contractions that we are unable to administer another dose of Misoprostol. We discussed that timing of contractions is adequate and that intensity is what is needed. She will consider Pitocin. We also discussed schulte or cook catheter for mechanical dilation in combination with current contractions or in adjunct to pitocin. She will think over these options but would like to continue without any additional measures at this time. KH Results Hemoglobin/Hematocrit: Hgb 12.0 g/dL (11.2-15.7) 06/13/22 10:45 Hct 36.3 % (36.0-46.0) 06/13/22 10:45
--- NOTE | 2022-06-13 18:07 | W.PM.OBNL1 ---
Date of service: 06/13/22 Time of Service: 18:07 Informed Consent Informed Consent: Induction of Labor and Risk,Benefits,Alternatives Discussed Pelvic Exam Dilation: 1 Effacement (%): 50 station: -1 Cervix Position: mid BISHOPS Score(Cervical Ripeness Score): 7 Comments: NO cervical change, patient agrees to augment further with Cook catheter at this time.KH Contractions Monitor Mode: External Contraction Frequency(min): 204 Contraction Duration(sec): 50-760 Intensity: Mild Fetus A Monitor: Novii Heart Rate Baseline: 115 Variability: Moderate (6-25 BPM) Categories: Category I Accelerations: 15 X 15 Decelerations: None (at this time there are no decelerations she has had times of non recurrent variable decel to 90) Assessment and Plan Assessment and plan (1) History of loss: Status: Acute Assessment and plan: 1. Discussed options to augment further as there has been no cervical change. Patient is agreeable to Cook catheter and it was placed with 60cc of NS in each balloon. Tolerated well. 2. Continue with continuous monitoring and reassess in 2 hours or prn. Objective Temp Pulse Resp BP 98.1 F 73 16 130/78 06/13/22 14:23 06/13/22 18:02 06/13/22 14:23 06/13/22 16:47 Laboratory Results WBC 10.33 10^3/uL (4.4-10.8) 06/13/22 10:45 RBC 4.03 10^6/uL (3.93-5.22) 06/13/22 10:45 Hgb 12.0 g/dL (11.2-15.7) 06/13/22 10:45 Hct 36.3 % (36.0-46.0) 06/13/22 10:45 MCV 90 fL (80-95) 06/13/22 10:45 MCH 29.8 pg (27.0-33.0) 06/13/22 10:45 MCHC 33.1 % (32.0-36.0) 06/13/22 10:45 RDW 12.8 % (11.7-14.6) 06/13/22 10:45 Plt Count 190 10^3/uL (130-400) 06/13/22 10:45 MPV 10.8 fL (8.0-11.0) 06/13/22 10:45 COVID-19 Source Nasal/Nares 06/13/22 10:30 SARS-CoV-2 (PCR) Negative (Negative) 06/13/22 10:30 Patient ABO/Rh A Positive 06/13/22 10:45 Antibody Screen NEGATIVE 06/13/22 10:45 Subjective Interval history since last seen: Radha is aware of contractions but not uncomfortable. Her has gone out to expend some nervous energy and she is reading. Agreed to Cook catheter placement. KH Results Hemoglobin/Hematocrit: Hgb 12.0 g/dL (11.2-15.7) 06/13/22 10:45 Hct 36.3 % (36.0-46.0) 06/13/22 10:45 Procedure Procedures: Cervical Ripening Cervical Ripening: Other (Cook catheter)
--- NOTE | 2022-06-13 18:39 | W.PM.OBNL1 ---
Date of service: 06/13/22 Time of Service: 18:39 Informed Consent Informed Consent: Induction of Labor and Risk,Benefits,Alternatives Discussed Contractions Monitor Mode: External Contraction Frequency(min): 2-3 Contraction Duration(sec): 60 Intensity: Mild/Moderate Fetus A Monitor: Novii Heart Rate Baseline: 120 Variability: Moderate (6-25 BPM) Decelerations: Variable (last variable lasted 80 seconds with shamar of 60 for 10 seconds. ) Assessment and Plan Assessment and plan (1) History of loss: Status: Acute Assessment and plan: 1. Dr. Alvares notified of tracing fluctuating between CAT I and CAT II due to variable decelerations but that overall tracing is reassuring. We reviewed patient history and that she is currently remote from delivery. No further change in management at this time. KH Objective Temp Pulse Resp BP 98.2 F 88 16 132/77 06/13/22 18:07 06/13/22 18:38 06/13/22 18:07 06/13/22 18:07 Laboratory Results WBC 10.33 10^3/uL (4.4-10.8) 06/13/22 10:45 RBC 4.03 10^6/uL (3.93-5.22) 06/13/22 10:45 Hgb 12.0 g/dL (11.2-15.7) 06/13/22 10:45 Hct 36.3 % (36.0-46.0) 06/13/22 10:45 MCV 90 fL (80-95) 06/13/22 10:45 MCH 29.8 pg (27.0-33.0) 06/13/22 10:45 MCHC 33.1 % (32.0-36.0) 06/13/22 10:45 RDW 12.8 % (11.7-14.6) 06/13/22 10:45 Plt Count 190 10^3/uL (130-400) 06/13/22 10:45 MPV 10.8 fL (8.0-11.0) 06/13/22 10:45 COVID-19 Source Nasal/Nares 06/13/22 10:30 SARS-CoV-2 (PCR) Negative (Negative) 06/13/22 10:30 Patient ABO/Rh A Positive 04/09/23 10:45 Antibody Screen NEGATIVE 06/13/22 10:45 Subjective Interval history since last seen: Patient is tolerating mechanical cervical Cook catheter well. She is aware that there are times when baby's heart rate drops but that over all reassuring. Dr. Alvares also notified by CNM of tracing and remote from delivery. Kh Results Hemoglobin/Hematocrit: Hgb 12.0 g/dL (11.2-15.7) 06/13/22 10:45 Hct 36.3 % (36.0-46.0) 06/13/22 10:45
[2022-06-13] MEDS: Lactated Ringers 1,000 ML 999 ML IV (22:05)
[2022-06-14] VITALS (124 sets, daily range): BP systolic 119–173; BP diastolic 68–84; PULSE 62–109; RESP 17–18; TEMP 36.7–37; O2SAT 98–100; BMI 25.3
--- NOTE | 2022-06-14 00:11 | W.PM.OBNL1 ---
Date of service: 06/14/22 Time of Service: 00:11 Informed Consent Informed Consent: Induction of Labor and Risk,Benefits,Alternatives Discussed Pelvic Exam Comments: VE deferred Contractions Monitor Mode: External Contraction Frequency(min): 3-7 Contraction Duration(sec): 30-60 Intensity: Mild Fetus A Monitor: Novii Heart Rate Baseline: 124 Variability: Moderate (6-25 BPM) Categories: Category II (IV hydration and position changes) CategoryII Plan of Care: Intrauterine Resuscitation and Continuous Monitoring/Observation Accelerations: 10 X 10 Decelerations: Variable Recurrence: Intermittent Amniotic Membrane Status: Intact Assessment and Plan Assessment and plan (1) History of loss: Status: Acute Assessment and plan: 1. Plan to leave Cook catheter in until 0600 and allow for rest until that time, 2. Continuous monitoring 3. VE at 0600 and will discuss plan of care at that time. KH Objective Temp Pulse Resp BP 98.1 F 95 H 16 112/66 06/13/22 23:29 06/14/22 00:10 06/13/22 18:07 06/13/22 23:29 Laboratory Results WBC 10.33 10^3/uL (4.4-10.8) 06/13/22 10:45 RBC 4.03 10^6/uL (3.93-5.22) 06/13/22 10:45 Hgb 12.0 g/dL (11.2-15.7) 06/13/22 10:45 Hct 36.3 % (36.0-46.0) 06/13/22 10:45 MCV 90 fL (80-95) 06/13/22 10:45 MCH 29.8 pg (27.0-33.0) 06/13/22 10:45 MCHC 33.1 % (32.0-36.0) 06/13/22 10:45 RDW 12.8 % (11.7-14.6) 06/13/22 10:45 Plt Count 190 10^3/uL (130-400) 06/13/22 10:45 MPV 10.8 fL (8.0-11.0) 06/13/22 10:45 COVID-19 Source Nasal/Nares 06/13/22 10:30 SARS-CoV-2 (PCR) Negative (Negative) 06/13/22 10:30 Patient ABO/Rh A Positive 06/13/22 10:45 Antibody Screen NEGATIVE 06/13/22 10:45 Subjective Interval history since last seen: Radha is fatigued and will rest with cook catheter in place until 0600. Plan to remove at that time and reassess cervix. Consider AROM and or pitocin in morning. KH Results Hemoglobin/Hematocrit: Hgb 12.0 g/dL (11.2-15.7) 06/13/22 10:45 Hct 36.3 % (36.0-46.0) 06/13/22 10:45
--- NOTE | 2022-06-14 06:22 | W.PM.OBNL1 ---
Date of service: 06/14/22 Time of Service: 06:22 Informed Consent Informed Consent: Induction of Labor and Risk,Benefits,Alternatives Discussed Pelvic Exam Dilation: 3 Effacement (%): 50 station: -1 Cervix Position: posterior Consistency: soft Contractions Monitor Mode: Internal Contraction Frequency(min): 2-4 Contraction Duration(sec): 30-50 IUPC resting tone (mmHg): 15 IUPC peak pressure (mmHg): 50 Fetus A Monitor: External (US) Heart Rate Baseline: 130 Variability: Moderate (6-25 BPM) Categories: Category I Accelerations: 15 X 15 Decelerations: None Amniotic Membrane Status: Ruptured (AROM at 0614 for small amount of clear fluid) Assessment and Plan Assessment and plan (1) Encounter for planned induction of labor: Status: Acute Assessment and plan: 1. Pulvi Mixer Operator reviewed options of Primary C/S (patient declines) or AROM to allow for IUPC to accurately measure contractions and allow for amnio-infusion if needed which patient agreed to. 2. Discussed Variable decelerations in FHR are not repetitive and that overall her baby's FHR tracing is reassuring. Discussed why amnio-infusion might be used in the setting of variable decelerations. 3. Reviewed that if contractions are not adequate for cervical change with AROM in the next hour that we could begin pitocin to further augment labor. Patient and agree to this plan of care and are excited to meet their baby today. 4. Clear liquids only discussed and Radha verbalizes understanding. 5. Will begin pitocin at approximately 0730 if contractions are not measuring 200 MVU in 10 minutes. KH Objective Temp Pulse Resp BP 98.2 F 76 16 119/83 06/14/22 01:37 06/14/22 06:06 06/13/22 18:07 06/14/22 06:06 Laboratory Results WBC 10.33 10^3/uL (4.4-10.8) 06/13/22 10:45 RBC 4.03 10^6/uL (3.93-5.22) 06/13/22 10:45 Hgb 12.0 g/dL (11.2-15.7) 06/13/22 10:45 Hct 36.3 % (36.0-46.0) 06/13/22 10:45 MCV 90 fL (80-95) 06/13/22 10:45 MCH 29.8 pg (27.0-33.0) 06/13/22 10:45 MCHC 33.1 % (32.0-36.0) 06/13/22 10:45 RDW 12.8 % (11.7-14.6) 06/13/22 10:45 Plt Count 190 10^3/uL (130-400) 06/13/22 10:45 MPV 10.8 fL (8.0-11.0) 06/13/22 10:45 COVID-19 Source Nasal/Nares 06/13/22 10:30 SARS-CoV-2 (PCR) Negative (Negative) 06/13/22 10:30 Patient ABO/Rh A Positive 06/13/22 10:45 Antibody Screen NEGATIVE 06/13/22 10:45 Vital Signs Reviewed: Yes Subjective Interval history since last seen: Pulvi Mixer Operator reviewed options when removing Cook catheter of no intervention and consider C/S based on her history and that there have been random variable decelerations in FHR, or AROM and placement of IUPC to allow accurate contraction monitoring and if no increase in contraction frequency in 1 hour to begin pitocin augmentation. Radha prefers to continue with plan for vaginal delivery and agrees to IUPC and pitocin if needed. KH Results Hemoglobin/Hematocrit: Hgb 12.0 g/dL (11.2-15.7) 06/13/22 10:45 Hct 36.3 % (36.0-46.0) 06/13/22 10:45 Procedure Procedures: IUPC Insertion , indication for IUPC: need for adequate contraction intensity and timing for potential pitocin augmentation and port for amnio infusion if needed.
[2022-06-14] MEDS: Oxytocin/Normal Saline 30 UNIT/500 ML BAG 2 UNITS IV (07:41)
--- NOTE | 2022-06-14 10:47 | W.PM.OBNL1 ---
Date of service: 06/14/22 Time of Service: 10:30 Informed Consent Informed Consent: Induction of Labor and Risk,Benefits,Alternatives Discussed Contractions Monitor Mode: Internal Contraction Frequency(min): 2 Contraction Duration(sec): 50 IUPC resting tone (mmHg): 20 IUPC peak pressure (mmHg): 80 IUPC Aneesh units: 220 Fetus A Monitor: External (US) Heart Rate Baseline: 135 Variability: Moderate (6-25 BPM) Categories: Category I Accelerations: 15 X 15 Assessment and Plan Assessment and plan (1) Encounter for planned induction of labor: Status: Acute Assessment and plan: 1. Pitocin is at 8 mu and contractions are adequate MVU 2. Patient is doing well with contractions, considering Nitrous if needed 3. Continue present management, expect NVD. KH Objective Temp Pulse Resp BP 98.1 F 67 18 138/84 06/14/22 10:33 06/14/22 10:33 06/14/22 10:33 06/14/22 10:33 Laboratory Results WBC 10.33 10^3/uL (4.4-10.8) 06/13/22 10:45 RBC 4.03 10^6/uL (3.93-5.22) 06/13/22 10:45 Hgb 12.0 g/dL (11.2-15.7) 06/13/22 10:45 Hct 36.3 % (36.0-46.0) 06/13/22 10:45 MCV 90 fL (80-95) 06/13/22 10:45 MCH 29.8 pg (27.0-33.0) 06/13/22 10:45 MCHC 33.1 % (32.0-36.0) 06/13/22 10:45 RDW 12.8 % (11.7-14.6) 06/13/22 10:45 Plt Count 190 10^3/uL (130-400) 06/13/22 10:45 MPV 10.8 fL (8.0-11.0) 06/13/22 10:45 COVID-19 Source Nasal/Nares 06/13/22 10:30 SARS-CoV-2 (PCR) Negative (Negative) 06/13/22 10:30 Patient ABO/Rh A Positive 06/13/22 10:45 Antibody Screen NEGATIVE 06/13/22 10:45 Subjective Interval history since last seen: Reports contractions are 7 out of 10 on pain scale. Using ball on hands and knees to manage discomfort. KH Results Hemoglobin/Hematocrit: Hgb 12.0 g/dL (11.2-15.7) 06/13/22 10:45 Hct 36.3 % (36.0-46.0) 06/13/22 10:45
[2022-06-14] MEDS: Lactated Ringers 1,000 ML 125 ML IV (11:16)
--- NOTE | 2022-06-14 13:44 | ANES.PREOP_ITS ---
General Info Date of Service Date Performed: 06/14/22 Height: 5 ft 4 in Weight: 66.933 kg Body Mass Index (BMI): 25.3 Meds Allergies and Home Medications Allergies Allergy/AdvReac Type Severity Reaction Status Date / Time bee venom protein (honey bee) Allergy Anaphylaxis Unverified 06/10/22 09:34 Home Medication Medication Instructions Recorded epinephrine 0.3 mg/0.3 mL 0.3 mg (0.3 mL) IM ONCE PRN 10/30/19 injection, auto-injector (EpiPen) allergic reaction #2 ea aspirin 81 mg tablet,delayed 81 mg PO DAILY 03/11/22 release prenat.vits,hanny,[id number] 1 tab PO DAILY 03/11/22 Current Visit Medications: Current Medications Generic Name Dose Route Start Last Admin Trade Name Freq PRN Reason Stop Dose Admin Sodium Chloride 500 mls @ 0 mls/hr 06/13/22 19:12 Saline 500ml Bag IV PRN PRN As Directed Ringer's Solution 1,000 mls @ 125 mls/hr 06/13/22 19:15 06/14/22 07:52 IV 125 mls/hr INFUSION PRN Infusion Non reassuring heart rate Ringer's Solution 1,000 mls @ 125 mls/hr 06/14/22 07:00 06/14/22 11:16 IV 125 mls/hr INFUSION ROX Administration Oxytocin/Sodium Chloride 30 unit in 500 mls @ 2 mls/hr 06/14/22 07:00 06/14/22 09:29 Pitocin/Normal Saline IV 8 milliunits/min INFUSION ROX 8 mls/hr Titration Protocol 2 MILLIUNITS/MIN IV Miscellaneous Supplies 1 each 06/13/22 19:15 Iv Access IV DIRECTED ROX Sodium Chloride 0 ml 06/13/22 19:12 Normal Saline Flush 10 Ml Syr IVP PRN PRN Terbutaline Sulfate 0.25 mg 06/13/22 10:25 Terbutaline 1 Mg/Ml Vial SC PRN PRN PFSH Active Problems Active Problems: Problem Status Onset Code Encounter for planned induction of labor Z34.90 Marginal insertion of umbilical cord affecting management of mother O43.199 Lactose intolerance E73.9 Tobacco smoker, less than 10 cigarettes per day F17.210 History of anemia Z86.2 History of loss Z87.59 Z34.90 Medical History Medical History (Updated 06/14/22 @ 06:27 by Ellie Chan CNM) Family history of BRCA2 gene positive Herbert () and his family Family history of hypertension in father FOB Herbert's family Family history of hypertension in grandmother Grief reaction History of abnormal cervical Pap smear 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 Date GA/Weeks # Preg Succ Route Wgt Sex Labor Lgth Anesth esia Location Prov Complic 12/26/19 40 No No vaginal 2948.35 g Female 48 [facility] other Delivery Date: 12/26/19 Last Updated by: Ellie Chan CNM IUFD due to true knot, meconium Gogo Vital Signs and Lab Results Vital Signs Most Recent Vital Signs in EMR: Most Recent Vital Signs Temp Pulse Resp BP 36.8 C 70 18 135/81 06/14/22 12:29 06/14/22 12:29 06/14/22 12:29 06/14/22 12:29 Lab Results 06/13/22 10:45 Blood Type / Crossmatch: Patient ABO/Rh A Positive 06/13/22 Antibody Screen NEGATIVE 06/13/22 Complete Blood Count: White Blood Count 10.33 10^3/uL (4.4-10.8) 06/13/22 10:45 Red Blood Count 4.03 10^6/uL (3.93-5.22) 06/13/22 10:45 Hemoglobin 12.0 g/dL (11.2-15.7) 06/13/22 10:45 Hematocrit 36.3 % (36.0-46.0) 06/13/22 10:45 Platelet Count 190 10^3/uL (130-400) 06/13/22 10:45 Complete Metabolic Panel: Sodium 136 mmol/L (136-145) 06/07/22 19:01 Potassium 3.6 mmol/L (3.5-5.1) 06/07/22 19:01 Chloride 104 mmol/L (98-107) 06/07/22 19:01 Carbon Dioxide 23.5 mmol/L (21.0-32.0) 06/07/22 19:01 BUN 9 mg/dL (7-18) 06/07/22 19:01 Creatinine 0.5 mg/dL (0.55-1.02) L 06/07/22 19:01 Est GFR (CKD-EPI 2020) 126.93 (mL/min/1.73m2) 06/07/22 19:01 Calcium 8.9 mg/dL (8.5-10.1) 06/07/22 19:01 Albumin 2.7 g/dL (3.4-5.0) L 06/07/22 19:01 Glucose 100 mg/dL (74-106) 06/07/22 19:01 Liver Function Panel: Alanine Aminotransferase (ALT/SGPT) 14 U/L (14-59) 06/07/22 19: 01 Aspartate Amino Transf (AST/SGOT) 9 U/L (15-37) L 06/07/22 19:0 1 Coagulation Panel: No Data to Display Cardiac Panel: No Data to Display Arterial Blood Gas: No Data to Display Venous Blood Gas: No Data to Display Pancreas Panel: No Data to Display Thyroid Panel: No Data to Display Infectious Disease: Coronavirus (COVID-19)(PCR) Negative (Negative) 06/13/22 10:30 Coronavirus 2019 Source Nasal/Nares 06/13/22 10:30 Blood Cultures: No Data to Display Toxicology Panel: No Data to Display Panel: No Data to Display Anesthesia Assessment and Plan Anesthesia History Personal History: No History of Anesthesia Complications Family History: No Family History of Anesthesia Complications Exercise Tolerance Exercise Tolerance: Metabolic Equivalents>4 Cardiac & Pulmonary Exam Cardiac Exam: Normal S1/S2 Heart Sounds Pulmonary Exam: Clear Bilateral Breath Sounds Implantable Cardiac Device Does patient have a Pacemaker or an ICD?: No Airway Exam Known Difficult Airway: No Mallampati Class: 2 Mouth Opening: Normal (> 3cm) Thyromental Distance: Greater than 3 cm Neck Range of Motion: Full ROM Neck Circumference: Normal Teeth Condition: Normal Dentition ASA Classification ASA Score: ASA 2 Emergency Case?: No NPO Status NPO Status: Full Stomach Status Status: Confirmed Anesthesia Plan Resuscitation Status: Full Code Anesthesia Technique: Epidural Anesthesia Airway Planned: Natural Airway Pain Management: Epidural Monitors Used: Standard Monitors Preoperative Comments:: 32 yo female requesting labor analgesia with previous IUFD. Sig PMHx: former smoker. denies major. Previous epidural: - [facility], 4 cm EL, 9 cm cath depth.
[2022-06-14] MEDS: FentaNYL/ROPIvacaine 2 mcg/ml and 0.1% 200 ML CADD Cassette EP (14:10)
[2022-06-14] MEDS: Oxytocin/Normal Saline 30 UNIT/500 ML BAG 95 UNITS IV (14:35)
--- NOTE | 2022-06-14 14:40 | W.ANESNEU ---
Epidural/Spinal Catheter Date Performed: 06/14/22 Procedure Start: 14:11 Procedure Stop: 14:13 Requesting Provider: Ellie Chan Procedure Location: Obstetrics Reason Performed: Labor Epidural Standard Monitors Applied: ECG, Blood Pressure and SpO2 Patient Position: Sitting Sedation Given (Indicate Dose Given): No Sedation given Patient Mental Status: Awake Sterility: Hand Hygiene, Surgical Cap, Surgical Mask, Sterile Gloves, Sterile Drape/Sheet and Chlorhexidine Procedure Location: L3-L4 Interspace Epidural Needle: Tuohy 17 Guage Needle Length: 3.5 Inch Needle Approach: Midline Epidural Procedure: EL to Saline Used Catheter Placed?: Catheter Placed Test Dose (Indicate Dose Given): 3ml 1.5% Lidocaine with 1:200K Epinephrine Given Loss of Resistance Depth (cm): 4 Catheter depth at skin (cm): 9 Dressing: [place] Dressing Placed and Mastisol Used Epidural Provider Bolus (Indicate Dose Given): Total Ropivacaine 0.1% with Fentanyl 2mcg/ml Given from pump. (ml) (7 mL + 5 mL) Dose:: 12 mL Additives (Indicate Dose Given ): None Infusion Medication: Medication Infusion Began Medication Infusion: Ropivacaine 0.1% with Fentanyl 2mcg/ml Maintenance Infusion Rate (ml/hour): 10 PCEA Bolus Dose (ml): 5 Block Level: N/A Paresthesia: None Ultrasound: Used to mir site Number of Attempts (See previous attempts in note section): 1 Procedure Tolerated: No Complications Procedure Outcome: Successful Procedure Comment:: wire reinforced cath. right side less dense, turned to right while bolus going with minimal effect as pressure was no much lower and she wanted to push. Performed By: Daryl Lamas
--- NOTE | 2022-06-14 14:55 | W.OBDELIVERY ---
Date of service: 06/14/22 Time of Service: 14:55 OB Labor/ Delivery Information Baby A Delivery Delivery Method: Spontaneaous Presentation: Vertex Vertex Position: Right Occipital Anterior Cord Description-Baby A: 3 Vessels and Clamped/Cut Amniotic Fluid: Clear Estimated Blood Loss: 100 Delivery Outcome: Liveborn Infant Complications: none Infant Transferred: Remains with Mother Note: Radha presented 06/13/22 at 10 am for induction of labor at 39 weeks due to history of prior full term loss. She had cervical ripening with 50mcg of Misoprostol and Cook catheter. She progressed to 3cm and we did AROM and began pitocin augmentation. She progressed nicely and at 8cm requested epidural as nitrous was no longer working for her. Once epdiural was placed and she laid back she began to have involuntary pushing and delivered a live female over intact perineum at 1433 at the same time we did second stage huddle. Baby was brought to skin to skin and positive family bonding was noted. score 7 at 1 minute and 9 at 5 minutes. Placenta delivered spontaneously at 1435, intact. Fundus firmed to U-1 with massage and IV fluid with pitocin. EBL 100cc. Perineum and vaginal noted to be intact. Pitocin infusing via IV per orders. Sponge, needle and instrument count are correct. Baby girl Yvonne will be breast fed. Weight 3260g, 7lb3oz. Providers Nurse Surgical Scrub Technician: Ellie Chan Swedger: Daryl Lamas Nurse: Vanessa Newton Nurse: Brian Serrano Labor/Delivery Information Number of Babies in Womb: 1 Steroids Given: None Reason Steroids Not Administered: N/A Group Beta Strep: Negative Rubella Status: Immune Blood Type: A+ Varicella Immunity: Immune Shoulder Dystocia: No Stages of Labor Onset of Labor Date: 06/14/22 Onset of Labor Time: 12:00 Complete Dilatation Date: 06/14/22 Complete Dilatation Time: 14:30 Labor - Stage 1 Duration: 2 hours and 30 minutes ROM Baby A: 06/14/22 ROM Baby A: 06:14 ROM Total Time- Baby A: [id number] Infant Delivery Date-Baby A: 06/14/22 Delivery Time-Baby A: 14:33 Labor Stage 2 Duration: 3 minutes Placenta Delivery Date-Baby A: 06/14/22 Placenta Delivery Time-Baby A: 14:35 Labor-Stage 3 Duration: 2 minutes Total Length of Labor-Baby A: 2 hours and 33 minutes Placenta Status: Delivered Baby A Infant Gender: Female Gestational Status: Term (39-41.6 wks) Gestational Age in Weeks/Days: 39 Weeks and 1 Days Score-1 Minute Interval(Baby A) Heart Rate-1 minute: 100 BPM or Greater Respiratory Effort- 1 minute: Slow Respiration/Weak Cry Muscle Tone-1 minute: Active Movement Reflex Response-1 minute: Prompt Response Color-1 minute: Pallor or Cyanosis Total Score-1 minute: 7 Score-5 Minute Interval(Baby A) Heart Rate- 5 minute: 100 BPM or Greater Respiratory Effort-5 minute: Spontaneous/Strong Cry Muscle Tone-5 minute: Active Movement Reflex Response-5 minute: Prompt Response Color-5 minute: Bluish Hands or Feet Total Score- 5 minute: 9
[2022-06-14] MEDS: Hamamelis Leaf/Glycerin 100 EACH BOX PR (18:00)
[2022-06-14] MEDS: Dibucaine 1% 28 GM TUBE TP (18:00)
[2022-06-14] MEDS: Docusate Sodium 100 MG CAP PO (20:24)
[2022-06-15 00:06] VITALS: BP 117/72; PULSE 79; TEMP 37.6
[2022-06-15] MEDS: Acetaminophen 325 MG TAB 650 MG PO (03:29)
[2022-06-15 03:38] VITALS: BP 125/80; PULSE 74; TEMP 37
--- NOTE | 2022-06-15 07:45 | W.ANESPOSTOP ---
Postoperative Evaluation Date, Time and Location Date Performed: 06/15/22 Time Performed: 07:20 Patient Location: Day Surgery Unit Vital Signs Most Recent Imported Vital Signs: Most Recent Vital Signs Temp Pulse Resp BP Pulse Ox 37.0 C 74 18 125/80 99 06/15/22 03:38 06/15/22 03:38 06/14/22 17:30 06/15/22 03:38 06/14/22 14:39 Pain Score Most Recent Pain Score: Most Recent Pain Score Pain Level [Abdomen] 0 06/14/22 14:39 Assessment Mental Status: Awake (Alert & Oriented to Patient Baseline) Airway and Respiratory Function: Patent airway with normal (patient baseline) respiratory exam Cardiovascular Function: Hemodynamically Stable Hydration Status: Adequately Hydrated Nausea & Vomiting: No Nausea or Vomiting Pain: Pt. Denies Any Pain Peripheral Nerve Block: Other (Epidural removed shortly after delivery, patient doing well, no concerns. Full motor and sensory returned to baseline.)
[2022-06-15] MEDS: Docusate Sodium 100 MG CAP PO (08:09)
[2022-06-15] MEDS: Ibuprofen 600 MG TAB PO (08:09)
[2022-06-15 08:14] VITALS: BP 137/81; PULSE 96; RESP 18; TEMP 36.9; O2SAT 99
--- NOTE | 2022-06-15 09:25 | W.PM.OBPNV1 ---
Date of service: 06/15/22 Time of Service: 09:00 Assessment and Plan Assessment and plan (1) care following vaginal delivery: Status: Acute Assessment and plan: 1. Normal PP course to date 2. Doing own ADL's 3. Continue present management and plan discharge today. (2) Lactating mother: Status: Acute Assessment and plan: 1. Breast feeding is going well 2. Reviewed signs of mastitis 3. Discharge today and follow up with Pediatrics as scheduled, WWC in 2 and 6 weeks. Exam Physical Exam Vital signs: Temp Pulse Resp BP Pulse Ox 98.4 F 96 H 18 137/81 99 06/15/22 08:14 06/15/22 08:14 06/15/22 08:14 06/15/22 08:14 06/15/22 08:14 Vital Signs Reviewed: Yes Constitutional Constitutional: no acute distress, average body habitus and cooperative HEENT Exam HEENT Exam: Normal Neck Exam Neck Exam: Normal (normal visual inspection) Respiratory Exam Respiratory Exam: Normal Cardiovascular Exam Cardiovascular Exam: Normal Abdominal Exam Abdomen: Other (normal exam) Fundal Exam Fundus: Below Umbilicus and Firm Comment: small lochia noted. Rectal Exam Rectal Exam: Not Done Exam Perineum: Intact and Normal Extremities Exam Extremity Exam: Normal (denies calf tenderness) and Full ROM Back/Spine/Pelvis Exam Back Exam: Normal Skin Exam Skin Exam: Normal Neurological Exam Neurological Exam: Normal Psychiatric Exam Psychiatric Exam: Normal Results Hemoglobin/Hematocrit: Hgb 12.0 g/dL (11.2-15.7) 06/13/22 10:45 Hct 36.3 % (36.0-46.0) 06/13/22 10:45
--- NOTE | 2022-06-15 09:32 | W.PM.OBDISCH ---
Date of service: 06/15/22 Time of Service: 09:32 DS: Diagnosis Discharge Diagnosis (1) care following vaginal delivery: Status: Acute Asessment and Plan: 1. Normal PP course 2. Discussed contraception, plans IUD but wants to wait until 12 weeks PP, will use condoms once sexually active until IUD is in place. 3. Discharge warning signs of PP complications reviewed and when to call provider. 4. Will RTO in 2 and 6 weeks PP (2) Lactating mother: Status: Acute Asessment and Plan: 1. Breast feeding is going well 2. Will follow up with Pediatric provider as scheduled. Discharge Plan Disposition Patient Disposition: Home Condition: Good Discharge Details Reason For Visit: Complicated by History of Full Term Stacy Admit Date/Time: 06/13/22 10:26 Admit Provider: Ellie Chan Attending Provider: Ellie Chan Primary Care Provider: Pushpa Mcdaniel Hospital Course Hospital Course: Induction of labor with misoprostol, cook catheter and IV pitocin. Use of epidural for pain management in last hour of labor. NVD of live female, Yvonne. Normal PP course. Home Meds and New Rx's Prescriptions: Continued prenat.vits,hanny,[id number] Tablet 1 tab PO DAILY epinephrine [EpiPen] 0.3 mg/0.3 mL auto-injector 0.3 mg IM ONCE PRN (Reason: allergic reaction) Qty: 2 0RF Rx Instructions: as a single dose Discontinued aspirin 81 mg tablet,delayed release (DR/EC) 81 mg PO DAILY Discharge Instructions Instructions: Mastitis (GEN), Depression (GEN), Intrauterine Device (GEN) Stand Alone Forms: BC Instructions, BC Post Vaginal Deliver Activity:: Activity as Tolerated Equipment/Supplies:: No Equipment Needed Diet:: As Tolerated Discharge Orders Discharge Orders: Discharge Order (Routine); Ordered 06/15/22 Ordered By: Ellie Chan OB:DS Summary Summary Vaginal Delivery Method: Spontaneaous Episiotomy Description: None Laceration Description: None Laceration Extension: N/A Contraception Discussed Contraception Discussed: Yes (plans IUD at 12-16 weeks PP condoms until that is placed) Contraceptive Plan: IUD and Foam/Condoms, St[place]al Gender-Baby A: Female weight: 7 lb 2.993 oz Status at Discharge Functional status at discharge: independent ambulation Overall status at discharge: patient is back to baseline Mental Status: mental status grossly normal Speech and Movement: speech and movement normal Mood: congruent mood Affect: normal affect Time Spent with Patient providing and/or coordinating discharge services: Less than 30 minutes Exam Physical Exam Vital signs: Temp Pulse Resp BP Pulse Ox 98.4 F 96 H 18 137/81 99 06/15/22 08:14 06/15/22 08:14 06/15/22 08:14 06/15/22 08:14 06/15/22 08:14 Vital Signs Reviewed: Yes Constitutional Constitutional: no acute distress, average body habitus and cooperative HEENT Exam HEENT Exam: Normal Neck Exam Neck Exam: Normal (normal visual inspection) Respiratory Exam Respiratory Exam: Normal Cardiovascular Exam Cardiovascular Exam: Normal Abdominal Exam Abdomen: Other (normal exam) Fundal Exam Fundus: Below Umbilicus and Firm Comment: small lochia noted. KH Rectal Exam Rectal Exam: Not Done Exam Perineum: Intact and Normal Extremities Exam Extremity Exam: Normal (denies calf tenderness) and Full ROM Back/Spine/Pelvis Exam Back Exam: Normal Skin Exam Skin Exam: Normal Neurological Exam Neurological Exam: Normal Psychiatric Exam Psychiatric Exam: Normal PFSH All Active Problems care following vaginal delivery (Acute) Lactating mother (Acute) Lactose intolerance (Acute) (Acute) Medical History Encounter for planned induction of labor Family history of BRCA2 gene positive Herbert () and his family Family history of hypertension in father FOB Herbert's family Family history of hypertension in grandmother Grief reaction History of abnormal cervical Pap smear History of anemia History of marijuana use History of loss IUFD at 40+wks in 2020, true knot in cord & marginal cord insertion Marginal insertion of umbilical cord affecting management of mother growth at 28 and 32-34 recommended depression associated with first loss Tobacco abuse Tobacco smoker, less than 10 cigarettes per day Surgical History Hx of tonsillectomy Social History Smoking/Tobacco Use Status: Former Tobacco Use Smoking risk assessment performed?: Yes Alcohol Intake: former Drug use: Never Do you feel safe at home: Yes Do you feel safe in your relationship?: Yes History History 2 Para 0 Hx # Term Pregnancies 1 Multiple births 0 Hx # Pregnancies 0 Ectopic pregnancies 0 AB induced 0 Hx Number of Living Children 0 AB spontaneous 0 Past Pregnancies Del. Date GA/Weeks # Preg Succ Route Wgt Sex Labor Lgth Anesthesia Location Prov Complic 12/26/19 40 No No vaginal 6 lb 8 oz Female 48 regional [facility] other Delivery Date: 12/26/19 Last Updated by: Ellie Chan CNM IUFD due to true knot, meconium Gogo DS: Data Vitals/I&O Vitals and I&O: Vital Signs Temperature 98.4 F 06/15/22 08:14 Temperature Source Oral 06/15/22 08:14 Pulse 96 H 06/15/22 08:14 Pulse Rhythm Regular 06/15/22 07:18 Respiratory Rate 18 06/15/22 08:14 Respiratory Depth Normal 06/15/22 07:18 Blood Pressure 137/81 06/15/22 08:14 Blood Pressure Mean 99 06/15/22 08:14 Pulse Oximetry 99 06/15/22 08:14 Pain Level 3 06/15/22 08:14 Comment taken on right arm, pt lying on rt side 06/14/22 14:23 Intake & Output 06/14/22 06/14/22 06/15/22 11:59 23:59 11:59 Intake Total 7.367 / 3634.616 5313.217 / 1521.584 500 / 500 Output Total 2049 Balance -742.633 / -528.416 214.217 / -528.416 500 / 500 Weight 147 lb 9 oz Intake: IV 7.367 / 6500.216 2479.217 / 1521.584 500 / 500 Output: Urine 750 / 2049 1299 / 2049 Other: Urine Color Yellow
== END 2022-06-15 16:40 | disposition home or self-care (01) | DRG 807 ==
LOC: OBS 10:55 → BCD 06-15 10:05
PROVIDERS: Admitting Provider Advanced Practice Midwife; PCP Nurse Practitioner Family; Visit Provider Advanced Practice Midwife
DX: O99.334 Smoking (tobacco) complicating childbirth (principal); Z37.0 Single live birth; Z3A.39 39 weeks gestation of pregnancy; O69.89X0 Labor and delivery complicated by other cord complications, not applicable or unspecified; O99.02 Anemia complicating childbirth; D64.9 Anemia, unspecified; O75.89 Other specified complications of labor and delivery; E73.9 Lactose intolerance, unspecified
CPT/HCPCS: 59200; 36415; 85027; 86850; 86900; 86901; 87635

== ENCOUNTER 2022-11-04 09:37 | Outpatient (REF) | payer BC, SELFPAY ==
[2022-11-05 13:32] LABS: Chlamydia Result Negative (Negative); GC Result Negative (Negative)
== END 2022-11-04 09:38 | disposition home or self-care (01) ==
LOC: LBN 09:37
PROVIDERS: PCP Nurse Practitioner Family; Visit Provider Obstetrics & Gynecology
DX: Z11.3 Encounter for screening for infections with a predominantly sexual mode of transmission (principal)
CPT/HCPCS: 87491; 87591

== ENCOUNTER 2024-09-25 13:10 | Outpatient (CLI) | payer OTHER, SELFPAY ==
[2024-09-25 12:09] LABS: HCG Quant, Pregnancy 63 mIU/mL (1-3)
== END 2024-09-25 13:11 | disposition home or self-care (01) ==
LOC: LBO 13:12
PROVIDERS: PCP Advanced Practice Midwife; Visit Provider Advanced Practice Midwife
DX: O20.9 Hemorrhage in early pregnancy, unspecified (principal)
CPT/HCPCS: 36415; 84702

== ENCOUNTER 2024-10-02 13:27 | Outpatient (CLI) | payer OTHER, SELFPAY ==
[2024-10-02 12:22] LABS: HCG Quant, Pregnancy 35 mIU/mL (1-3)
== END 2024-10-02 13:28 | disposition home or self-care (01) ==
LOC: LBO 13:27
PROVIDERS: PCP Advanced Practice Midwife; Visit Provider Obstetrics & Gynecology
DX: O03.9 Complete or unspecified spontaneous abortion without complication (principal)
CPT/HCPCS: 36415; 84702

== ENCOUNTER 2024-10-10 11:05 | Outpatient (CLI) | payer OTHER, SELFPAY ==
[2024-10-10 12:04] LABS: HCG Quant, Pregnancy 24 mIU/mL (1-3)
== END 2024-10-10 11:06 | disposition home or self-care (01) ==
LOC: LBO 11:05
PROVIDERS: PCP Advanced Practice Midwife; Visit Provider Obstetrics & Gynecology
DX: O03.9 Complete or unspecified spontaneous abortion without complication (principal)
CPT/HCPCS: 36415; 84702

== ENCOUNTER 2024-10-17 13:23 | Outpatient (CLI) | payer OTHER, SELFPAY ==
[2024-10-18 19:14] LABS: HCG Quant, Pregnancy 4 mIU/mL (1-3)
== END 2024-10-17 13:24 | disposition home or self-care (01) ==
LOC: LBO 13:24
PROVIDERS: PCP Advanced Practice Midwife; Visit Provider Obstetrics & Gynecology
DX: O03.9 Complete or unspecified spontaneous abortion without complication (principal)
CPT/HCPCS: 36415; 84702